=== PATIENT | female | born 1970 ===

== ENCOUNTER 2022-11-09 16:20 | Emergency (ER) | payer SELFPAY ==
[~2022-11-09] VITALS: Ht 167.6 cm; Wt 83.9 kg
[2022-11-09 16:27] VITALS: BP_SYST 179
[2022-11-09] MEDS ORDERED: KETOROLAC TROMETHAMINE 60 MG/2 ML VIAL IM ONE (17:30)
[2022-11-09] MEDS ORDERED: IBUP-1971 PO (19:21)
[2022-11-09] MEDS ORDERED: OXYC-128 PO (19:21)
[2022-11-09] MEDS ORDERED: ZOLP10TA2 PO (19:21)
[2022-11-09 19:33] VITALS: BP_SYST 128
== END 2022-11-09 19:33 | disposition home or self-care (01) ==
LOC: SED 16:20
DX: S83.91XA Sprain of unspecified site of right knee, initial encounter (principal); F51.04 Psychophysiologic insomnia; Z79.899 Other long term (current) drug therapy; W10.9XXA Fall (on) (from) unspecified stairs and steps, initial encounter; Y93.89 Activity, other specified; Y92.89 Other specified places as the place of occurrence of the external cause; Y99.8 Other external cause status
CPT/HCPCS: 99285; 93971; 73564; 73590; 73610; 96372; J1885